=== PATIENT | male | born 2000 | race Caucasian/White ===

== ENCOUNTER 2022-11-10 16:53 | Emergency (ER) | payer OTHER ==
[~2022-11-10] VITALS: Ht 170.2 cm; Wt 59.0 kg
[2022-11-10] MEDS ORDERED: TETANUS/DIPHTHERIA TOX ADULT 0.5 ML SYR IM ONE (17:30)
[2022-11-10] MEDS ORDERED: LIDOCAINE HCL 1% LOCAL INJ 20 ML VIAL INJ ONE (18:45)
[2022-11-10] MEDS ORDERED: IBUPROFEN600 MG PO (19:10)
[2022-11-10] MEDS ORDERED: CEPHALEXIN500 MG PO (19:10)
[2022-11-10] MEDS ORDERED: CEPHALEXIN 500 MG CAP PO ONE (19:15)
[2022-11-10] MEDS ORDERED: CEPHALEXIN250 MG/5 M PO (19:43)
[2022-11-10 20:00] VITALS: O2SAT 100
== END 2022-11-10 20:00 | disposition home or self-care (01) ==
LOC: ER 19:14
DX: S66.320A Laceration of extensor muscle, fascia and tendon of right index finger at wrist and hand level, initial encounter (principal); W25.XXXA Contact with sharp glass, initial encounter; Y92.89 Other specified places as the place of occurrence of the external cause
CPT/HCPCS: 90471; 90714; 99284